=== PATIENT | female | born 1975 | race Caucasian/White ===

== ENCOUNTER 2016-08-28 10:38 | Emergency (ER) | payer MEDICAID, OTHER ==
[2016-08-28] MEDS ORDERED: ACETAMINOPHEN 325 MG TAB As Ordered ONE (11:23)
--- NOTE | 2016-08-28 12:35 | EDDOCDS ---
Nurse's Notes [facility] Name: Mis Cole Age: 40 yrs Sex: Female : 1975 Arrival Date: 08/28/2016 Time: 10:38 Bed PR Private MD: NO PRIMARY PHYSICIAN, . Diagnosis: Unspecified ovarian cysts;Pelvic and perineal pain;Encounter for test, result negative Presentation: 08/28 10:42 Presenting complaint: Patient states: low abdominal pain for 2 days. States had kr3 positive home test 1 day ago. Adult Sepsis Screening: The patient does not have new or worsening altered mentation. Patient's respiratory rate is less than 22. Systolic blood pressure is greater than 100. Patient has a qSOFA score of 0- Negative Sepsis Screen. Suicide/Homicide risk assessment- the patient denies having any suicidal and/or homicidal ideations and does not present with any other emotional, behavioral or mental health complaints. Status: Patient is not a care services manager or dependent. Transition of care: patient was not received from another setting of care. 10:42 Acuity: ISSA Level 3 kr3 10:42 Method Of Arrival: Walkin/Carried/Asstd kr3 Triage Assessment: 10:43 General: Appears in no apparent distress, comfortable, Behavior is cooperative. Pain: kr3 Location: right lower quadrant and left lower quadrant Pain currently is 5 out of 10 on a pain scale. Pain radiates to low back area. Pt Declines HIV testing. GI: Reports lower abdominal pain, nausea, Denies constipation, diarrhea. : Denies burning with urination, urinary frequency, urgency. Derm: No deficits noted. 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 none - PMHx: Anxiety; Depression; Rheumatoid Arthritis; - PSHx: Cholecystectomy; - Social history: Smoking status: Patient uses tobacco products, current every day smoker. No barriers to communication noted, The patient speaks fluent Angolan, Speaks appropriately for age. - Family history: Not pertinent. - : The pt / caregiver states he / she is not on anticoagulants. Home medication list is obtained from the patient. - Exposure Risk Screening:: None identified. Screenin:34 Screening information is obtained from the patient. Fall risk: No risks identified. kr3 Assistance ADL's: requires no assistance with activities of daily living. Abuse/DV Screen: The patient / caregiver reports he/she is: not in a situation that causes fear, pain or injury. Nutritional screening: No deficits noted. Advance Directives: Currently, there is no health care proxy. home support is adequate. Assessment: 12:35 Reassessment: Patient appears in no apparent distress at this time. kr3 Vital Signs: 10:40 BP 146 / 91; Pulse 93; Resp 18; Temp 97.8(O); Pulse Ox 97% on R/A; Weight 106.59 kg ct3 (R); Height 5 ft. 7 in. (170.18 cm) (R); Pain 8/10; 12:24 BP 137 / 92; Pulse 77; Resp 18; Temp 98.1(TE); Pulse Ox 98% on R/A; Pain 5/10; ar3 10:40 Body Mass Index 36.81 (106.59 kg, 170.18 cm) ct3 Vitals: 10:40 Log In Time: August 28, 2016 at 10:37. ct3 ED Course: 10:39 Patient visited by Moon Garner PCA. ct3 10:39 NO PRIMARY PHYSICIAN, . is Private Physician. ct3 10:39 Patient moved to Waiting ct3 10:40 Patient moved to Pre RCE ct3 10:41 Patient moved to Triage 3 kr3 10:42 Triage Initiated kr3 10:53 Patient visited by Iza Nicole PCA. ar3 10:58 Brett [facility] cc10 10:58 Sanjeev Marie MD is Attending Physician. cc10 11:06 Patient visited by Brett Nguyễn PA-C. cc10 11:06 Patient visited by Brett Nguyễn PA-C. cc10 11:23 Patient name changed from Mis\S\\S\Douglas\S\ to Mis\S\Sejal\S\Douglas. EDMS 11:24 [facility] Payment Agreement was scanned into Pricing Engine and attached to record. lg 11:29 Patient moved to TR2 ar3 11:30 UA Sent. ar3 11:30 Hcg, Serum Quantitative Sent. ar3 12:21 Patient moved to PR1 / 25 ar3 12:24 Patient visited by Iza Nicole PCA. ar3 12:27 Vic Salinas MD is Referral Physician. cc10 12:34 The patient / caregiver is instructed regarding the plan of care and ED course. Patient dominic has correct armband on for positive identification. 12:35 No IV's were initiated during this patient's visit. No procedures done that require kr3 assistance. Administered Medications: 11:26 Drug: Acetaminophen 650 mg [acetaminophen 325 mg tablet (2 tabs)] Route: PO; [facility] Point of Care Testing: Urine : 10:53 hCG Reading: Negative; Control Reading: Positive; ar3 Ranges: Order Results: Lab Order: Hcg, Serum Quantitative; SPEC'M 08/28/16 11:27 Test: HCG, SERUM QUANTITATIVE; Value: < 1.0; Units: MIU/ML; Status: F Test Note: ; GESTATIONAL AGE APPROXIMATE HCG RANGE (MIU/ML) 0.2-1 WEEK 5-50 1-2 WEEKS 50-500 2-3 WEEKS 100-5,000 3-4 WEEKS 500-10,000 4-5 WEEKS 1,000-50,000 5-6 WEEKS 10,000-100,000 6-8 WEEKS 15,000-200,000 2-3 MONTHS 10,000-100,000 NON FEMALES LESS THAN 3.0 Patient samples may contain human heterophilic antibodies that could react with immunoassays to give falsely elevated or depressed results. This assay has been designed to minimize interference from heterophilic antibodies. Elevated hCG levels have also been associated with trophoblastic disease and nontrophoblastic neoplasms. The possibility of having these diseases should be considered before a diagnosis of is made. This test is not intended for use as a surrogate marker for aiding in the diagnosis or monitoring the treatment of cancer patients. Siemens C4M methodology. Lab Order: UA; SPEC'M 08/28/16 11:27 Test: APPEARANCE, URINE; Value: TURBID; Range: CLEAR; Abnormal: Above high normal; Status: F Test: COLOR, URINE; Value: JULIO CESAR; Range: YELLOW; Status: F Test: PH,URINE; Value: 5.0; Range: 5.0-9.0; Units: UNITS; Status: F Test: SPECIFIC GRAVITY URINE AUTO; Value: 1.028; Range: 1.002-1.035; Status: F Test: PROTEIN, URINE AUTO; Value: 2+; Range: NEGATIVE; Abnormal: Above high normal; Units: mg/dL; Status: F Test: GLUCOSE, URINE (UA) AUTO; Value: NEGATIVE; Range: NEGATIVE; Units: mg/dL; Status: F Test: KETONE, URINE AUTO; Value: TRACE; Range: NEGATIVE; Abnormal: Above high normal; Units: mg/dL; Status: F Test: UROBILINOGEN, URINE AUTO; Value: 2.0; Range: 0.0-2.0; Abnormal: Above high normal; Units: mg/dL; Status: F Test: BILIRUBIN, URINE AUTO; Value: 1+; Range: NEGATIVE; Abnormal: Above high normal; Status: F Test: NITRITE, URINE AUTO; Value: NEGATIVE; Range: NEGATIVE; Status: F Test: LEUKOCYTE ESTERASE, URINE AUTO; Value: 2+; Range: NEGATIVE; Abnormal: Above high normal; Status: F Test: BLOOD, URINE BLOOD; Value: 2+; Range: NEGATIVE; Abnormal: Above high normal; Status: F Test: WBC, URINE AUTO; Value: TNTC; Range: 0-3; Abnormal: Above high normal; Units: /HPF; Status: F Test: RBC, URINE AUTO; Value: 61; Range: 0-3; Abnormal: Above high normal; Units: /HPF; Status: F Test: BACTERIA, URINE AUTO; Value: NEGATIVE; Range: NEGATIVE; Status: F Test: SQUAMOUS EPITHELIAL CELL UR AU; Value: 21; Range: 0-6; Units: /HPF; Status: F Test: MUCUS, URINE; Value: LARGE; Range: NEGATIVE; Status: F Test: HYALINE CAST, URINE AUTO; Value: 83; Range: 0-1; Units: /LPF; Status: F Outcome: 12:27 Discharge ordered by Provider. cc10 12:34 Discharge Assessment: patient administered narcotics - no. The following High Risk kr3 Discharge criteria are identified: None. Discharged to home ambulatory. Condition: stable. Discharge instructions given to patient, Instructed on discharge instructions, follow up and referral plans. Demonstrated understanding of instructions, Pt was receptive of discharge instructions/ teaching. 12:34 Ultrasound Study completed. Property sent home with patient. kr3 12:35 Patient left the ED. kr3 Signatures: Dispatcher [employer] EDEnriqueta Jackson, Haylie Bingham lgRN RN kr3 Iza Nicole, WASTEWATER TREATMENT ENGINEER WASTEWATER TREATMENT ENGINEER ar3 Moon Garner, WASTEWATER TREATMENT ENGINEER WASTEWATER TREATMENT ENGINEER ct3 Lupe Arndt RN RN [facility] Brett Nguyễn, PA-C PA-C cc10 Corrections: (The following items were deleted from the chart) 10:45 10:42 Presenting complaint: Patient states: low abdominal pain for 2 days kr3 kr3 MTDD
--- NOTE | 2016-08-28 12:35 | EDDOCDS ---
Physician Documentation [facility] Name: Mis Cole Age: 40 yrs Sex: Female : 1975 Arrival Date: 08/28/2016 Time: 10:38 Bed PR Private MD: NO PRIMARY PHYSICIAN, . Disposition: 08/28/16 12:27 Discharged to Home/Self Care. Impression: Unspecified ovarian cysts, Pelvic and perineal pain, Encounter for test, result negative. - Condition is Stable. - Discharge Instructions: Ovarian Cyst, Pelvic Pain, Female. - Medication Reconciliation form. - Follow up: Vic Salinas MD; When: Call to arrange an appointment; Reason: Recheck today's complaints, Continuance of care, To establish care. - Problem is an ongoing problem. - Symptoms are resolved. Historical: - Allergies: Codeine Sulfatestarts shaking; - Home Meds: 1. none - PMHx: Anxiety; Depression; Rheumatoid Arthritis; - PSHx: Cholecystectomy; - Social history: Smoking status: Patient uses tobacco products, current every day smoker. No barriers to communication noted, The patient speaks fluent Belarusian, Speaks appropriately for age. - Family history: Not pertinent. - : The pt / caregiver states he / she is not on anticoagulants. Home medication list is obtained from the patient. - Exposure Risk Screening:: None identified. 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 7 in. (170.18 cm) (R); Pain 8/10; 12:24 BP 137 / 92; Pulse 77; Resp 18; Temp 98.1(TE); Pulse Ox 98% on R/A; Pain 5/10; ar3 10:40 Body Mass Index 36.81 (106.59 kg, 170.18 cm) ct3 MDM: 10:46 UCG by Nursing ordered. kr3 11:10 Financial registration complete. lg 11:11 Acetaminophen Tablet 650 mg PO once ordered. cc10 11:12 Hcg, Serum Quantitative Ordered. EDMS 11:13 -US Pelvic Non-Ob Complete Ordered. EDMS 11:13 DUPLEX SCAN LIMITED (DOPPLER)+US Ordered. EDMS 11:19 UA Ordered. EDMS 11:24 [facility] Payment Agreement was scanned into [employer]ish and attached to record. lg 12:05 Transvaginal NON- US Ordered. EDMS 12:11 UA Reviewed. cc10 12:11 Hcg, Serum Quantitative Reviewed. cc10 Point of Care Testing: Urine : 10:53 hCG Reading: Negative; Control Reading: Positive; ar3 Ranges: Administered Medications: 11:26 Drug: Acetaminophen 650 mg [acetaminophen 325 mg tablet (2 tabs)] Route: PO; [facility] Signatures: Dispatcher MedHost EDMS Enriqueta Nesbitt, Mejia Reg lg Haylie Hobbs RN RN kr3 Brett Nguyễn, PA-C PA-C cc10 Lupe Arndt RN [facility] The chart was reviewed and I authenticate all verbal orders and agree with the evaluation and treatment provided.Attachments: 11:24 [facility] Payment Agreement lg MTDD
--- NOTE | 2016-08-28 12:36 | REP ---
Clinical: Pelvic and adnexal pain. Rule out torsion. Technique: Transabdominal pelvic ultrasound followed by transvaginal examination for better evaluation of the endometrium and adnexa with color Doppler evaluation of the ovaries. Findings: Bladder is collapsed. Normal anteverted uterus measures 7.2 x 5.0 x 3.8 cm . The endometrial complex measures 7.8 mm thickness. No discrete uterine or endometrial abnormalities are appreciated. Bilateral ovaries are normal in appearance and vascularity without evidence for torsion. Right ovary measures 2.0 x 2.0 x 0.7 cm ; R I = 0.54 . Left ovary measures 3.2 x 1.7 x 2.8 cm and includes 2.2 cm physiologic cyst / dominant follicle ; R I = 0.31 . No pelvic fluid or adnexal mass lesion. Impression: 1. 2.2 cm likely physiologic cyst in the left ovary. Consider follow-up examination in 4-6 weeks to evaluate for resolution. 2. Normal anteverted uterus. Otherwise normal ovaries without torsion. Signed by Navjot Sauer MD 08/28/2016 12:28 P
--- NOTE | 2016-08-30 13:35 | EDDOCDS ---
Physician Documentation [facility] Name: Mis Cole Age: 40 yrs Sex: Female : 1975 Arrival Date: 08/28/2016 Time: 10:38 Bed PR Private MD: NO PRIMARY PHYSICIAN, . Disposition: 08/28/16 12:27 Discharged to Home/Self Care. Impression: Unspecified ovarian cysts, Pelvic and perineal pain, Encounter for test, result negative. - Condition is Stable. - Discharge Instructions: Ovarian Cyst, Pelvic Pain, Female. - Medication Reconciliation form. - Follow up: Vic Salinas MD; When: Call to arrange an appointment; Reason: Recheck today's complaints, Continuance of care, To establish care. - Problem is an ongoing problem. - Symptoms are resolved. Historical: - Allergies: Codeine Sulfatestarts shaking; - Home Meds: 1. none - PMHx: Anxiety; Depression; Rheumatoid Arthritis; - PSHx: Cholecystectomy; - Social history: Smoking status: Patient uses tobacco products, current every day smoker. No barriers to communication noted, The patient speaks fluent Croatian, Speaks appropriately for age. - Family history: Not pertinent. - : The pt / caregiver states he / she is not on anticoagulants. Home medication list is obtained from the patient. - Exposure Risk Screening:: None identified. 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 7 in. (170.18 cm) (R); Pain 8/10; 12:24 BP 137 / 92; Pulse 77; Resp 18; Temp 98.1(TE); Pulse Ox 98% on R/A; Pain 5/10; ar3 10:40 Body Mass Index 36.81 (106.59 kg, 170.18 cm) ct3 MDM: 10:46 UCG by Nursing ordered. kr3 11:10 Financial registration complete. lg 11:11 Acetaminophen Tablet 650 mg PO once ordered. cc10 11:12 Hcg, Serum Quantitative Ordered. EDMS 11:13 -US Pelvic Non-Ob Complete Ordered. EDMS 11:13 DUPLEX SCAN LIMITED (DOPPLER)+US Ordered. EDMS 11:19 UA Ordered. EDMS 11:24 [facility] Payment Agreement was scanned into [employer]Less and attached to record. lg 12:05 Transvaginal NON- US Ordered. EDMS 12:11 UA Reviewed. cc10 12:11 Hcg, Serum Quantitative Reviewed. cc10 08/29 12:17 T-Sheet-- Draft Copy was scanned into [employer]Less and attached to record. Point of Care Testing: Urine : 08/28 10:53 hCG Reading: Negative; Control Reading: Positive; ar3 Ranges: Administered Medications: 11:26 Drug: Acetaminophen 650 mg [acetaminophen 325 mg tablet (2 tabs)] Route: PO; [facility] Signatures: Dispatcher MedHost EDMS Brandee Kate, Reg Reg gb Enriqueta Nesbitt, Reg Reg lg Haylie Hobbs RN RN kr3 Brett Nguyễn, PA-C PA-C cc10 Lupe Arndt RN [facility] The chart was reviewed and I authenticate all verbal orders and agree with the evaluation and treatment provided.Attachments: 11:24 [facility] Payment Agreement lg 08/29 12:17 T-Sheet-- Draft Copy gb Chart Complete MTDD
--- NOTE | 2016-08-30 13:36 | EDDOCDS ---
Physician Documentation [facility] Name: Mis Cole Age: 40 yrs Sex: Female : 1975 Arrival Date: 08/28/2016 Time: 10:38 Bed PR Private MD: NO PRIMARY PHYSICIAN, . Disposition: 08/28/16 12:27 Discharged to Home/Self Care. Impression: Unspecified ovarian cysts, Pelvic and perineal pain, Encounter for test, result negative. - Condition is Stable. - Discharge Instructions: Ovarian Cyst, Pelvic Pain, Female. - Medication Reconciliation form. - Follow up: Vic Salinas MD; When: Call to arrange an appointment; Reason: Recheck today's complaints, Continuance of care, To establish care. - Problem is an ongoing problem. - Symptoms are resolved. Historical: - Allergies: Codeine Sulfatestarts shaking; - Home Meds: 1. none - PMHx: Anxiety; Depression; Rheumatoid Arthritis; - PSHx: Cholecystectomy; - Social history: Smoking status: Patient uses tobacco products, current every day smoker. No barriers to communication noted, The patient speaks fluent Khmer, Speaks appropriately for age. - Family history: Not pertinent. - : The pt / caregiver states he / she is not on anticoagulants. Home medication list is obtained from the patient. - Exposure Risk Screening:: None identified. 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 7 in. (170.18 cm) (R); Pain 8/10; 12:24 BP 137 / 92; Pulse 77; Resp 18; Temp 98.1(TE); Pulse Ox 98% on R/A; Pain 5/10; ar3 10:40 Body Mass Index 36.81 (106.59 kg, 170.18 cm) ct3 MDM: 10:46 UCG by Nursing ordered. kr3 11:10 Financial registration complete. lg 11:11 Acetaminophen Tablet 650 mg PO once ordered. cc10 11:12 Hcg, Serum Quantitative Ordered. EDMS 11:13 -US Pelvic Non-Ob Complete Ordered. EDMS 11:13 DUPLEX SCAN LIMITED (DOPPLER)+US Ordered. EDMS 11:19 UA Ordered. EDMS 11:24 [facility] Payment Agreement was scanned into VILOOP and attached to record. lg 12:05 Transvaginal NON- US Ordered. EDMS 12:11 UA Reviewed. cc10 12:11 Hcg, Serum Quantitative Reviewed. cc10 08/29 12:17 T-Sheet-- Draft Copy was scanned into VILOOP and attached to record. Point of Care Testing: Urine : 08/28 10:53 hCG Reading: Negative; Control Reading: Positive; ar3 Ranges: Administered Medications: 11:26 Drug: Acetaminophen 650 mg [acetaminophen 325 mg tablet (2 tabs)] Route: PO; [facility] Signatures: Dispatcher [employer]Host EDMS Brandee Kate, Reg Reg gb Enriqueta Nesbitt, Reg Reg lg Haylie Hobbs RN RN kr3 Brett Nguyễn, PA-C PA-C cc10 Lupe Arndt RN [facility] The chart was reviewed and I authenticate all verbal orders and agree with the evaluation and treatment provided.Attachments: 11:24 [facility] Payment Agreement lg 08/29 12:17 T-Sheet-- Draft Copy gb Chart Complete MTDD
--- NOTE | 2016-08-30 13:36 | EDDOCDS ---
Nurse's Notes [facility] Name: Mis Cole Age: 40 yrs Sex: Female : 1975 Arrival Date: 08/28/2016 Time: 10:38 Bed PR Private MD: NO PRIMARY PHYSICIAN, . Diagnosis: Unspecified ovarian cysts;Pelvic and perineal pain;Encounter for test, result negative Presentation: 08/28 10:42 Presenting complaint: Patient states: low abdominal pain for 2 days. States had kr3 positive home test 1 day ago. Adult Sepsis Screening: The patient does not have new or worsening altered mentation. Patient's respiratory rate is less than 22. Systolic blood pressure is greater than 100. Patient has a qSOFA score of 0- Negative Sepsis Screen. Suicide/Homicide risk assessment- the patient denies having any suicidal and/or homicidal ideations and does not present with any other emotional, behavioral or mental health complaints. Status: Patient is not a municipal services manager or dependent. Transition of care: patient was not received from another setting of care. 10:42 Acuity: ISSA Level 3 kr3 10:42 Method Of Arrival: Walkin/Carried/Asstd kr3 Triage Assessment: 10:43 General: Appears in no apparent distress, comfortable, Behavior is cooperative. Pain: kr3 Location: right lower quadrant and left lower quadrant Pain currently is 5 out of 10 on a pain scale. Pain radiates to low back area. Pt Declines HIV testing. GI: Reports lower abdominal pain, nausea, Denies constipation, diarrhea. : Denies burning with urination, urinary frequency, urgency. Derm: No deficits noted. 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 none - PMHx: Anxiety; Depression; Rheumatoid Arthritis; - PSHx: Cholecystectomy; - Social history: Smoking status: Patient uses tobacco products, current every day smoker. No barriers to communication noted, The patient speaks fluent Beninese, Speaks appropriately for age. - Family history: Not pertinent. - : The pt / caregiver states he / she is not on anticoagulants. Home medication list is obtained from the patient. - Exposure Risk Screening:: None identified. Screenin:34 Screening information is obtained from the patient. Fall risk: No risks identified. kr3 Assistance ADL's: requires no assistance with activities of daily living. Abuse/DV Screen: The patient / caregiver reports he/she is: not in a situation that causes fear, pain or injury. Nutritional screening: No deficits noted. Advance Directives: Currently, there is no health care proxy. home support is adequate. Assessment: 12:35 Reassessment: Patient appears in no apparent distress at this time. kr3 Vital Signs: 10:40 BP 146 / 91; Pulse 93; Resp 18; Temp 97.8(O); Pulse Ox 97% on R/A; Weight 106.59 kg ct3 (R); Height 5 ft. 7 in. (170.18 cm) (R); Pain 8/10; 12:24 BP 137 / 92; Pulse 77; Resp 18; Temp 98.1(TE); Pulse Ox 98% on R/A; Pain 5/10; ar3 10:40 Body Mass Index 36.81 (106.59 kg, 170.18 cm) ct3 Vitals: 10:40 Log In Time: August 28, 2016 at 10:37. ct3 ED Course: 10:39 Patient visited by Moon Garner PCA. ct3 10:39 NO PRIMARY PHYSICIAN, . is Private Physician. ct3 10:39 Patient moved to Waiting ct3 10:40 Patient moved to Pre RCE ct3 10:41 Patient moved to Triage 3 kr3 10:42 Triage Initiated kr3 10:53 Patient visited by Iza Nicole PCA. ar3 10:58 [facility] cc10 10:58 Sanjeev Marie MD is Attending Physician. cc10 11:06 Patient visited by Brett Nguyễn PA-C. cc10 11:06 Patient visited by Brett Nguyễn PA-C. cc10 11:23 Patient name changed from Mis\S\\S\Douglas\S\ to Mis\S\Sejal\S\Douglas. EDMS 11:24 [facility] Payment Agreement was scanned into [employer] and attached to record. lg 11:29 Patient moved to TR2 ar3 11:30 UA Sent. ar3 11:30 Hcg, Serum Quantitative Sent. ar3 12:21 Patient moved to PR1 / 25 ar3 12:24 Patient visited by Iza Nicole PCA. ar3 12:27 Vic Salinas MD is Referral Physician. cc10 12:34 The patient / caregiver is instructed regarding the plan of care and ED course. Patient dominic has correct armband on for positive identification. 12:35 No IV's were initiated during this patient's visit. No procedures done that require kr3 assistance. 13:11 -US Pelvic Non-Ob Complete Returned. EDMS 08/29 12:17 T-Sheet-- Draft Copy was scanned into [employer] and attached to record. gb Administered Medications: 08/28 11:26 Drug: Acetaminophen 650 mg [acetaminophen 325 mg tablet (2 tabs)] Route: PO; [facility] Point of Care Testing: Urine : 10:53 hCG Reading: Negative; Control Reading: Positive; ar3 Ranges: Order Results: Lab Order: Hcg, Serum Quantitative; SPEC'M 08/28/16 11:27 Test: HCG, SERUM QUANTITATIVE; Value: < 1.0; Units: MIU/ML; Status: F Test Note: ; GESTATIONAL AGE APPROXIMATE HCG RANGE (MIU/ML) 0.2-1 WEEK 5-50 1-2 WEEKS 50-500 2-3 WEEKS 100-5,000 3-4 WEEKS 500-10,000 4-5 WEEKS 1,000-50,000 5-6 WEEKS 10,000-100,000 6-8 WEEKS 15,000-200,000 2-3 MONTHS 10,000-100,000 NON FEMALES LESS THAN 3.0 Patient samples may contain human heterophilic antibodies that could react with immunoassays to give falsely elevated or depressed results. This assay has been designed to minimize interference from heterophilic antibodies. Elevated hCG levels have also been associated with trophoblastic disease and nontrophoblastic neoplasms. The possibility of having these diseases should be considered before a diagnosis of is made. This test is not intended for use as a surrogate marker for aiding in the diagnosis or monitoring the treatment of cancer patients. Siemens Anne Fogarty methodology. Lab Order: UA; SPEC'M 08/28/16 11:27 Test: APPEARANCE, URINE; Value: TURBID; Range: CLEAR; Abnormal: Above high normal; Status: F Test: COLOR, URINE; Value: JULIO CESAR; Range: YELLOW; Status: F Test: PH,URINE; Value: 5.0; Range: 5.0-9.0; Units: UNITS; Status: F Test: SPECIFIC GRAVITY URINE AUTO; Value: 1.028; Range: 1.002-1.035; Status: F Test: PROTEIN, URINE AUTO; Value: 2+; Range: NEGATIVE; Abnormal: Above high normal; Units: mg/dL; Status: F Test: GLUCOSE, URINE (UA) AUTO; Value: NEGATIVE; Range: NEGATIVE; Units: mg/dL; Status: F Test: KETONE, URINE AUTO; Value: TRACE; Range: NEGATIVE; Abnormal: Above high normal; Units: mg/dL; Status: F Test: UROBILINOGEN, URINE AUTO; Value: 2.0; Range: 0.0-2.0; Abnormal: Above high normal; Units: mg/dL; Status: F Test: BILIRUBIN, URINE AUTO; Value: 1+; Range: NEGATIVE; Abnormal: Above high normal; Status: F Test: NITRITE, URINE AUTO; Value: NEGATIVE; Range: NEGATIVE; Status: F Test: LEUKOCYTE ESTERASE, URINE AUTO; Value: 2+; Range: NEGATIVE; Abnormal: Above high normal; Status: F Test: BLOOD, URINE BLOOD; Value: 2+; Range: NEGATIVE; Abnormal: Above high normal; Status: F Test: WBC, URINE AUTO; Value: TNTC; Range: 0-3; Abnormal: Above high normal; Units: /HPF; Status: F Test: RBC, URINE AUTO; Value: 61; Range: 0-3; Abnormal: Above high normal; Units: /HPF; Status: F Test: BACTERIA, URINE AUTO; Value: NEGATIVE; Range: NEGATIVE; Status: F Test: SQUAMOUS EPITHELIAL CELL UR AU; Value: 21; Range: 0-6; Units: /HPF; Status: F Test: MUCUS, URINE; Value: LARGE; Range: NEGATIVE; Status: F Test: HYALINE CAST, URINE AUTO; Value: 83; Range: 0-1; Units: /LPF; Status: F Radiology Order: -US Pelvic Non-Ob Complete Test: -US Pelvic Non-Ob Complete REASON FOR EXAMINATION: Adnexal Pain r/o Torsion; Clinical: Pelvic and adnexal pain. Rule out torsion.; ; Technique: Transabdominal pelvic ultrasound followed by transvaginal examination; for better evaluation of the endometrium and adnexa with color Doppler evaluation; of the ovaries.; ; Findings:; ; Bladder is collapsed.; ; Normal anteverted uterus measures 7.2 x 5.0 x 3.8 cm . The endometrial complex; measures 7.8 mm thickness. No discrete uterine or endometrial abnormalities are; appreciated.; ; Bilateral ovaries are normal in appearance and vascularity without evidence for; torsion. Right ovary measures 2.0 x 2.0 x 0.7 cm ; R I = 0.54 . Left ovary; measures 3.2 x 1.7 x 2.8 cm and includes 2.2 cm physiologic cyst / dominant; follicle ; R I = 0.31 .; ; No pelvic fluid or adnexal mass lesion.; ; Impression:; 1. 2.2 cm likely physiologic cyst in the left ovary. Consider follow-up; examination in 4-6 weeks to evaluate for resolution.; 2. Normal anteverted uterus. Otherwise normal ovaries without torsion.; ; ; Signed by; Navjot Sauer MD 08/28/2016 12:28 P; Outcome: 12:27 Discharge ordered by Provider. cc10 12:34 Discharge Assessment: patient administered narcotics - no. The following High Risk kr3 Discharge criteria are identified: None. Discharged to home ambulatory. Condition: stable. Discharge instructions given to patient, Instructed on discharge instructions, follow up and referral plans. Demonstrated understanding of instructions, Pt was receptive of discharge instructions/ teaching. 12:34 Ultrasound Study completed. Property sent home with patient. kr3 12:35 Patient left the ED. kr3 Signatures: Dispatcher [employer] EDMS Brandee Kate, Reg Reg gb Enriqueta Nesbitt, Reg Reg lg Haylie Hobbs RN RN kr3 Iza Nicole, RECOVERY UNIT OPERATOR RECOVERY UNIT OPERATOR ar3 Moon Garner, RECOVERY UNIT OPERATOR RECOVERY UNIT OPERATOR ct3 Lupe Arndt RN RN cjh Coniski, Colin, PA-C PA-C cc10 Corrections: (The following items were deleted from the chart) 10:45 10:42 Presenting complaint: Patient states: low abdominal pain for 2 days kr3 kr3 Chart Complete MTDD
== END 2016-08-28 12:35 | disposition home or self-care (01) ==
LOC: M ED 10:38
DX: N83.202 Unspecified ovarian cyst, left side (principal); F41.9 Anxiety disorder, unspecified; F32.9 Major depressive disorder, single episode, unspecified; M06.9 Rheumatoid arthritis, unspecified; Z88.5 Allergy status to narcotic agent; F17.210 Nicotine dependence, cigarettes, uncomplicated

== ENCOUNTER 2016-11-05 18:20 | Emergency (ER) | payer OTHER ==
[~2016-11-05] VITALS: Ht 170.2 cm; Wt 104.3 kg
[2016-11-05 18:21] VITALS: BP 150/95
[2016-11-05] MEDS ORDERED: LEXA1TAB PO (18:40)
[2016-11-05] MEDS ORDERED: NAPROXEN 250 MG TAB PO ONE (19:15)
[2016-11-05] MEDS ORDERED: NAPR500T PO (19:43)
--- NOTE | 2016-11-05 21:02 | REP ---
LEFT WRIST, FIVE VIEWS INCLUDING SCAPHOID VIEW: There is no evidence of an acute fracture, dislocation or intrinsic bone disease. IMPRESSION: No fracture or dislocation. Signed by Mg Brand MD 11/06/2016 05:23 P
== END 2016-11-05 20:29 | disposition home or self-care (01) ==
LOC: M ED 19:38
DX: S63.522A Sprain of radiocarpal joint of left wrist, initial encounter (principal); W18.30XA Fall on same level, unspecified, initial encounter; Y92.830 Public park as the place of occurrence of the external cause; Y93.69 Activity, other involving other sports and athletics played as a team or group; Y99.9 Unspecified external cause status; I73.00 Raynaud's syndrome without gangrene; M06.9 Rheumatoid arthritis, unspecified; F41.9 Anxiety disorder, unspecified; Z88.5 Allergy status to narcotic agent

== ENCOUNTER 2016-12-01 20:12 | Emergency (ER) | payer OTHER ==
[~2016-12-01] VITALS: Ht 170.2 cm; Wt 104.3 kg
[~2016-12-01 20:12] MED LIST: LEXA1TAB PO; NAPR500T PO
[2016-12-01 20:21] VITALS: BP 162/84
[2016-12-01] MEDS ORDERED: CLON0.5T PO (20:26)
== END 2016-12-01 20:42 | disposition home or self-care (01) ==
LOC: EDBD 20:12 → M ED 20:34
DX: F41.9 Anxiety disorder, unspecified (principal); F17.200 Nicotine dependence, unspecified, uncomplicated; Z88.5 Allergy status to narcotic agent

== ENCOUNTER 2016-12-03 01:24 | Emergency (ER) | payer OTHER ==
[~2016-12-03] VITALS: Ht 170.2 cm; Wt 104.3 kg
[~2016-12-03 01:24] MED LIST changes: +CLON0.5T PO
[2016-12-03] MEDS ORDERED: EXCETAB81 PO (01:48)
[2016-12-03] MEDS ORDERED: HYDRO50TAB GT (01:48)
[2016-12-03] MEDS ORDERED: ACETAMINOPHEN 325 MG TAB PO ONE (05:15)
[2016-12-03 05:22] VITALS: BP 126/85
--- NOTE | 2016-12-03 08:19 | REP ---
Clinical: Trauma. Technique: AP, lateral, bilateral oblique views. Findings: The osseous structures and joint spaces are intact and normal. There is no evidence for acute fracture or dislocation. Surrounding soft tissues are unremarkable. No subcutaneous emphysema or radiodense foreign body. Impression: No acute fracture or dislocation. Signed by Navjot Sauer MD 12/03/2016 08:10 A
== END 2016-12-03 05:32 | disposition home or self-care (01) ==
LOC: M ED 02:41
DX: S60.221A Contusion of right hand, initial encounter (principal); W22.8XXA Striking against or struck by other objects, initial encounter; Y92.099 Unspecified place in other non-institutional residence as the place of occurrence of the external cause; Y93.89 Activity, other specified; Y99.9 Unspecified external cause status

== ENCOUNTER 2016-12-08 19:14 | Emergency (ER) | payer OTHER ==
[~2016-12-08] VITALS: Ht 170.2 cm; Wt 104.3 kg
[~2016-12-08 19:14] MED LIST changes: +EXCETAB81 PO; +HYDRO50TAB GT
[2016-12-08] MEDS ORDERED: ATIV1TAB7 PO ×4 (20:48→21:22)
[2016-12-08 21:47] VITALS: BP 137/92
== END 2016-12-08 21:49 | disposition home or self-care (01) ==
LOC: M ED 19:43
DX: F41.9 Anxiety disorder, unspecified (principal)

== ENCOUNTER → 2016-12-21 | Outpatient (REF) | payer OTHER, MEDICAID ==
[~2016-12-21] MED LIST changes: +ATIV1TAB7 PO
[2016-12-21 13:50] LABS: BASO % 0.6 % (0.0-1.0); EOS # 0.2 K/mm3 (0.0-0.50); EOS % 3.4 % (0.0-3.0); LARGE UNSTAINED CELL # 0.1 K/mm3 (0.0-0.4); LARGE UNSTAINED CELL % 2.1 % (0.0-4.0); LYMPH # 1.2 K/mm3 (1.5-4.5); LYMPH % 20.5 % (24.0-44.0); MEAN CORPUSCULAR HEMOGLOBIN 33.9 pg (27.0-33.0); MEAN CORPUSCULAR HGB CONC 33.6 g/dl (32.0-36.5); MEAN CORPUSCULAR VOLUME 100.7 fl (80.0-96.0); MONO # 0.3 K/mm3 (0.0-0.8); MONO % 6.1 % (0.0-5.0); NEUTROPHILS # 3.6 K/mm3 (1.8-7.7); NEUTROPHILS % 67.3 % (36.0-66.0); PLATELET COUNT, AUTOMATED 186 k/mm3 (150-450); RED CELL DISTRIBUTION WIDTH 12.6 % (11.5-14.5); WHITE BLOOD COUNT 5.3 K/mm3 (4.0-10.0)
[2016-12-21 14:13] LABS: ALBUMIN 3.1 GM/DL (3.2-5.2); ALBUMIN/GLOBULIN RATIO 0.53 (1.00-1.93); ALKALINE PHOSPHATASE 76 U/L (45-117); ALT/SGPT 36 U/L (12-78); ANION GAP 6 MEQ/L (8-16); AST/SGOT 27 U/L (15-37); BILIRUBIN,TOTAL 0.4 MG/DL (0.2-1.0); BLOOD UREA NITROGEN 13 MG/DL (7-18); CALCIUM LEVEL 8.9 MG/DL (8.5-10.1); CARBON DIOXIDE LEVEL 27 MEQ/L (21-32); CHLORIDE LEVEL 106 MEQ/L (98-107); CHOLESTEROL LEVEL 185 MG/DL (<200); CREATININE FOR GFR 0.91 MG/DL (0.55-1.02); FREE T4 1.01 NG/DL (0.76-1.46); GLOMERULAR FILTRATION RATE > 60.0 (>60); GLUCOSE, FASTING 78 MG/DL (70-105); POTASSIUM SERUM 3.9 MEQ/L (3.5-5.1); SODIUM LEVEL 139 MEQ/L (136-145); TOTAL PROTEIN 8.9 GM/DL (6.4-8.2); TRIGLYCERIDES LEVEL 118 MG/DL (<150)
== END ==
LOC: M LABDRAW1 13:02
PROVIDERS: ATTEND Nurse Practitioner Family
DX: M06.9 Rheumatoid arthritis, unspecified (principal); Z13.1 Encounter for screening for diabetes mellitus; Z13.220 Encounter for screening for lipoid disorders; F41.8 Other specified anxiety disorders

== ENCOUNTER → 2017-02-06 | Outpatient (REF) | payer MEDICAID ==
[~2017-02-06] MED LIST changes: +EXCETAB80 PO; +HYDRO50TAB PO; +NICO14PA TD; +TRAZO50TA PO; +VENL75CA47 PO
[2017-02-06 16:21] LABS: FREE T4 0.96 NG/DL (0.76-1.46)
[2017-02-06 16:22] LABS: THYROID PEROXIDASE ANTIBODY 37.3 U/ML (<60.0)
== END ==
LOC: M SFHCPLAZ 13:18
PROVIDERS: ATTEND Nurse Practitioner Family
DX: R94.6 Abnormal results of thyroid function studies (principal)

== ENCOUNTER → 2017-02-19 | Outpatient (CLI) | payer MEDICAID, OTHER ==
--- NOTE | 2017-02-19 12:59 | REP ---
Thyroid ultrasound: The thyroid is normal size. The right lobe measures 4.3 x 1.3 x 1.3 cm. The left lobe measures 3.7 x 1.3 x 1.0 cm. The isthmus measures 0.2 cm thickness. The thyroid parenchyma is homogeneous. There are no masses, nodules or cysts. Impression: Normal thyroid ultrasound. Signed by Mg Dumont MD 02/19/2017 12:50 P
== END ==
LOC: M RAD 11:56
PROVIDERS: ATTEND Nurse Practitioner Family
DX: R94.6 Abnormal results of thyroid function studies (principal)

== ENCOUNTER → 2017-05-24 | Outpatient (REF) | payer OTHER ==
[2017-05-24 14:55] LABS: FREE T4 0.99 NG/DL (0.76-1.46)
== END ==
LOC: M SFHCPLAZ 11:26
PROVIDERS: ATTEND Nurse Practitioner Family
DX: E03.9 Hypothyroidism, unspecified (principal)

== ENCOUNTER 2017-06-08 03:10 | Emergency (ER) | payer OTHER ==
[~2017-06-08] VITALS: Ht 170.2 cm; Wt 97.7 kg
[2017-06-08] MEDS ORDERED: ROBA500T PO (06:41)
[2017-06-08] MEDS ORDERED: METHOCARBAMOL 1,000 MG/10 ML VIAL (J2800) IM ONE (06:45)
[2017-06-08 06:53] VITALS: BP 138/78
== END 2017-06-08 07:15 | disposition home or self-care (01) ==
LOC: M ED 03:10
DX: M62.830 Muscle spasm of back (principal); F41.9 Anxiety disorder, unspecified; Z79.899 Other long term (current) drug therapy; Z88.5 Allergy status to narcotic agent; F17.210 Nicotine dependence, cigarettes, uncomplicated
CPT/HCPCS: 96372; 99284; J2800

== ENCOUNTER 2017-06-17 15:56 | Emergency (ER) | payer OTHER ==
[~2017-06-17] VITALS: Ht 170.2 cm; Wt 99.1 kg
[~2017-06-17 15:56] MED LIST changes: +ROBA500T PO
[2017-06-17] MEDS ORDERED: EXCETAB81 PO (16:05)
[2017-06-17] MEDS ORDERED: methylPREDNISolone INJ 125 MG/2 ML VIAL (J2930) IV ONE (18:00)
[2017-06-17] MEDS ORDERED: PRED20TA PO (20:22)
[2017-06-17] MEDS ORDERED: VALI5TAB PO (20:22)
[2017-06-17 20:50] VITALS: BP 109/69
--- NOTE | 2017-06-18 06:14 | REP ---
REASON: Back pain with bilateral leg numbness and tingling. Comparison MRI: None. There is loss of disc hydrational signal and disc space height from L2-3 to L5-S1 inclusive and particularly posteriorly. Vertebral body height and alignment is within normal limits. The marrow signal is within normal limits. No abnormal signal is seen in the imaged portion of the spinal cord. At the L1-2 level, there is no disc herniation, foraminal narrowing, or central canal stenosis. At the L2-3 level, there is a moderate broad based annular bulge which is causing a mild central concave anterior deformity of the thecal sac. There is no disc extrusion of foraminal narrowing. At the L3-4 level, there is a moderate broad based annular bulge which is causing a mild concave anterior deformity of the anterior thecal sac. There is no disc extrusion or foraminal narrowing. At the L4-5 level, there is a slight broad based annular bulge. There is no disc extrusion, foraminal narrowing, or central canal stenosis. At the L5-S1 level, there is a moderate broad based annular bulge seen in conjunction with a slight central disc extrusion with inferior migration. The extruded disc material does not compromise the thecal sac nor does it cause foraminal narrowing or foraminal nerve compression. IMPRESSION: 1. There is a small central L5-S1 disc extrusion as described above. 2. Broad based annular bulges with mild thecal sac compression causing mild central canal stenosis at the L2-3 and L3-4 levels. 3. Other findings as described above. Signed by Jhonny Ritter DO 06/18/2017 03:29 P
== END 2017-06-17 20:56 | disposition home or self-care (01) ==
LOC: M ED 15:56
DX: M51.27 Other intervertebral disc displacement, lumbosacral region (principal); M54.41 Lumbago with sciatica, right side; Z72.0 Tobacco use
CPT/HCPCS: 72148; 96374; 96375; 99284; J2930; J3360

== ENCOUNTER → 2017-08-05 | Outpatient (REF) | payer OTHER ==
[2017-08-05 19:59] LABS: FREE T4 0.97 NG/DL (0.76-1.46)
== END ==
LOC: M SFHCPLAZ 13:54
DX: E03.9 Hypothyroidism, unspecified (principal)
CPT/HCPCS: 84443

== ENCOUNTER 2017-09-22 17:23 | Emergency (ER) | payer OTHER | END 2017-09-22 19:06 | disposition home or self-care (01) | LOC: M ED 17:23 | DX: S82.832A Other fracture of upper and lower end of left fibula, initial encounter for closed fracture (principal); X50.0XXA Overexertion from strenuous movement or load, initial encounter; Y92.018 Other place in single-family (private) house as the place of occurrence of the external cause; I73.00 Raynaud's syndrome without gangrene; F41.9 Anxiety disorder, unspecified; F33.9 Major depressive disorder, recurrent, unspecified; Z79.890 Hormone replacement therapy; Z88.5 Allergy status to narcotic agent; F17.210 Nicotine dependence, cigarettes, uncomplicated | CPT/HCPCS: 73610 ==

== ENCOUNTER → 2017-09-23 | Outpatient (REF) | payer OTHER | LOC: M SFHCPLAZ 16:19 | DX: E03.9 Hypothyroidism, unspecified (principal) ==

== ENCOUNTER → 2017-10-01 | Outpatient (REF) | payer OTHER ==
[2017-10-01 16:29] LABS: FREE T4 1.03 NG/DL (0.76-1.46)
== END ==
LOC: M SFHCPLAZ 13:56
DX: E03.9 Hypothyroidism, unspecified (principal)
CPT/HCPCS: 84443

== ENCOUNTER 2017-10-31 13:51 | Outpatient (RCR) | payer OTHER | END 2017-11-11 | LOC: M PT 13:51 | DX: Z51.89 Encounter for other specified aftercare (principal); M54.42 Lumbago with sciatica, left side | CPT/HCPCS: 97010 ==

== ENCOUNTER 2017-11-14 13:09 | Outpatient (RCR) | payer OTHER | END 2017-12-12 | LOC: M PT 13:09 | DX: Z51.89 Encounter for other specified aftercare (principal); M54.42 Lumbago with sciatica, left side | CPT/HCPCS: 97010 ==